=== PATIENT | male | born 1945 | race Caucasian/White ===

== ENCOUNTER 2017-03-18 13:19 | Emergency (ER) | payer OTHER, MEDICARE ==
[~2017-03-18] VITALS: Ht 180.3 cm; Wt 82.0 kg
[~2017-03-18 13:19] MED LIST: APIX5TAB3 PO; CARV-50 PO; FURO-150 PO; GABA-532 PO; MIRT30TA8 PO; OMEP40CA37 PO; POTA10TA19 PO; PRAV20TA4 PO; TOPI100T18 PO; TRAM50TA2 PO; VITA1TAB20 PO
[2017-03-18 15:29] VITALS: BP 125/89
== END 2017-03-18 15:34 | disposition home or self-care (01) ==
LOC: ER 13:19
DX: S01.411A Laceration without foreign body of right cheek and temporomandibular area, initial encounter (principal); S51.012A Laceration without foreign body of left elbow, initial encounter; S51.011A Laceration without foreign body of right elbow, initial encounter; I11.0 Hypertensive heart disease with heart failure; I50.9 Heart failure, unspecified; I48.91 Unspecified atrial fibrillation; G89.29 Other chronic pain; Z98.890 Other specified postprocedural states; Z79.899 Other long term (current) drug therapy; Z88.5 Allergy status to narcotic agent; W18.09XA Striking against other object with subsequent fall, initial encounter; Y93.89 Activity, other specified; Y92.89 Other specified places as the place of occurrence of the external cause; Y99.8 Other external cause status
CPT/HCPCS: 70450; 70486; 93005; 99284

== ENCOUNTER 2017-03-19 08:22 | Day surgery (SDC) | payer OTHER, MEDICARE ==
[~2017-03-19] VITALS: Ht 180.3 cm; Wt 81.6 kg
[2017-03-19] VITALS (7 sets, daily range): BP systolic 101–115; BP diastolic 55–67
[2017-03-19] MEDS ORDERED: albumin (human) 25% 100 ML IV solution IV PRN (08:50)
[2017-03-19] MEDS ORDERED: normal saline 1000ml 1,000 ML IV PRN (08:50)
== END 2017-03-19 10:23 | disposition home or self-care (01) ==
LOC: SSTAY O 08:22
PROVIDERS: ATTEND Radiology Vascular & Interventional Radiology
DX: R18.8 Other ascites (principal); K76.89 Other specified diseases of liver; I10 Essential (primary) hypertension; I25.10 Atherosclerotic heart disease of native coronary artery without angina pectoris; Z79.01 Long term (current) use of anticoagulants; Z88.6 Allergy status to analgesic agent; Z72.89 Other problems related to lifestyle; Z98.890 Other specified postprocedural states; Z79.899 Other long term (current) drug therapy
CPT/HCPCS: 49083; A6257; J7030; P9047

== ENCOUNTER 2017-04-01 08:14 | Inpatient (IN) | payer OTHER, MEDICARE ==
[~2017-04-01] VITALS: Ht 180.3 cm; Wt 84.9 kg
[2017-04-01] VITALS (17 sets, daily range): BP systolic 91–152; BP diastolic 49–97
[~2017-04-01 08:14] MED LIST changes: +LIDOcaine 1% 30ml vial IJ STA
[2017-04-01] MEDS ORDERED: albumin (human) 25% 100 ML IV solution IV PRN (08:40)
[2017-04-01] MEDS ORDERED: normal saline 1000ml 1,000 ML IV PRN (08:40)
[2017-04-01] MEDS ORDERED: oxyCODONE IR 5mg (immed. release) tablet PO ONE (09:05)
[2017-04-01] MEDS ORDERED: LIDOcaine 1% (10mg/ml) 2ml vial ONE (09:29)
[2017-04-01] MEDS ORDERED: MIDAZolam 5mg/ml 2ml vial ONE (10:49)
[2017-04-01] MEDS ORDERED: HYDR-569 PO (10:53)
[2017-04-01 11:15] LABS: BASOPHILS # (AUTO) 0.1 X10'3 (0-0.2); BASOPHILS % (AUTO) 0.9 % (0-1); EOSINOPHILS # (AUTO) 0.2 X10'3 (0-0.9); EOSINOPHILS % (AUTO) 3.2 % (0-6); HEMATOCRIT 41.2 % (42.0-52.0); HEMOGLOBIN 13.6 g/dl (14.0-17.9); LYMPHOCYTES # (AUTO) 2.2 X10'3 (1.1-4.8); LYMPHOCYTES % (AUTO) 31.3 % (21-51); MEAN CORPUSCULAR HGB CONC 33.1 % (33.0-36.5); MEAN CORPUSCULAR VOLUME 96.8 FL (78-98); MEAN PLATELET VOLUME 9.6 FL (7.4-10.4); MONOCYTES # (AUTO) 0.4 X10'3 (0-0.9); MONOCYTES % (AUTO) 6.1 % (2-12); NEUTROPHILS # (AUTO) 4.1 X10'3 (1.8-7.7); NEUTROPHILS % (AUTO) 58.5 % (42-75); PLATELET COUNT 197 X10'3 (140-440); RED BLOOD COUNT 4.25 X10'6 (4.70-6.10); RED CELL DISTRIBUTION WIDTH 15.5 % (11.5-14.5); WHITE BLOOD COUNT 6.9 X10'3 (4.5-11.0)
[2017-04-01] MEDS: normal saline 1000ml 1,000 ML IV SCH (11:23)
[2017-04-01 11:24] LABS: ALANINE AMINOTRANSFERASE 37 U/L (12-78); ALBUMIN 2.3 G/DL (3.4-5.0); ALBUMIN/GLOBULIN RATIO 0.5 (1.1-1.5); ALKALINE PHOSPHATASE 363 IU/L (46-116); ANION GAP 9 (8-16); ASPARTATE AMINO TRANSFERASE 47 U/L (10-37); BILIRUBIN,TOTAL 0.4 MG/DL (0.1-1.0); BLOOD UREA NITROGEN 33 MG/DL (7-18); BUN/CREATININE RATIO 18.3 (5.4-32.0); CALCIUM 8.7 MG/DL (8.5-10.1); CHLORIDE 109 MMOL/L (99-107); GLUCOSE 141 MG/DL (70-104); MAGNESIUM 2.2 MG/DL (1.5-2.4); PHOSPHORUS 4.3 MG/DL (2.3-4.5); SODIUM 143 MMOL/L (135-145); TOTAL CARBON DIOXIDE 24.6 MMOL/L (24-32); TOTAL PROTEIN 6.5 G/DL (6.4-8.2); eGFR 37 ML/MIN
[2017-04-01] MEDS ORDERED: magnesium hydroxide 30ml (MOM) UD suspension PO PRN (11:25)
[2017-04-01] MEDS ORDERED: ipratropium/albuterol 3ml nebule NEB PRN (11:25)
[2017-04-01] MEDS ORDERED: ondansetron/PF 4mg/2ml inj IV PRN (11:25)
[2017-04-01] MEDS ORDERED: magnesium 2GM in 50ml NS 50 ML IV PRN (11:25)
[2017-04-01] MEDS ORDERED: acetaminophen 325mg tablet PO PRN (11:25)
[2017-04-01] MEDS ORDERED: potassium Cl 20 mEq SR tablet PO PRN ×2 (11:25)
[2017-04-01] MEDS ORDERED: magnesium Cl slow-release 64mg tablet PO PRN (11:25)
[2017-04-01] MEDS ORDERED: magnesium 4gm in 100ml NS 100 ML IV PRN (11:25)
[2017-04-01] MEDS ORDERED: sodium phosphate inj. 15 MMOL in dextrose 5%-water 150 ML IV PRN (11:25)
[2017-04-01] MEDS ORDERED: Neutra Phos packet PO PRN (11:25)
[2017-04-01] MEDS ORDERED: sodium phosphate inj. 30 MMOL in dextrose 5%-water 250 ML IV PRN (11:25)
[2017-04-01 11:27] LABS: LACTIC SEPSIS 1.8 MMOL/L (0.4-2.0)
[2017-04-01] MEDS: insulin regular, human inj. 100 UNITS in normal saline 100ml IV soln 100 ML IV SCH ×2 (11:40)
[2017-04-01 12:46] LABS: ABG BASE EXCESS -4.7 mmol/L (-2.0-3.0); ABG HCO3 20.1 mmol/L (22.0-26.0); ABG OXYGEN SATURATION 98.2 % (95-98); ABG PCO2 (T) 32.5 mmHg (35.0-48.0); ABG PH (T) 7.397 (7.350-7.450); ABG PO2 (T) 110.2 mmHg (83-108); FCOHb 0.5 % (0.5-1.5); FMetHb 0.1 % (0.3-1.12); FO2Hb 97.6 % (94-100); PATIENT TEMPERATURE 34.1; PEEP 5 cm H2O; RESPIRATORY RATE 18 b/min; TIDAL VOLUME 450 mL; TOTAL HEMOGLOBIN 14.1 G/dl (14.0-18.0)
[2017-04-01 12:46] LABS: OXYGEN SATURATION (MIXED VEN) 57.2 % (60-80); PO2 MIXED VENOUS (TEMP COR) 26.5 mmHg (35-46)
[2017-04-01] MEDS: midazolam 100mg in NS 100ml 100 ML IV PRN (12:48)
[2017-04-01] MEDS: FENTANYL-0.9 % NACL/PF 100 ML IV PRN (12:49)
[2017-04-01] MEDS: insulin Lispro (HumaLOG) vial - multi-dose SQ SCH ×2 (13:00→18:00)
[2017-04-01 13:46] LABS: CKMB RELATIVE INDEX 1.9 RATIO (0-2.5); CREATINE KINASE 144 U/L (39-308); LIPASE 120 U/L (73-393); TROPONIN I 0.09 NG/ML (0.0-0.05)
[2017-04-01 14:05] LABS: INR 1.2 INR; PARTIAL THROMBOPLASTIN TIME 28 SECONDS (22-32); PLATELET COUNT 197 X10'3 (140-440); PROTHROMBIN TIME 11.9 SECONDS (9.0-12.0)
[2017-04-01 14:17] LABS: D-DIMER 7.29 MG/L FEU (0-0.50)
[2017-04-01 14:57] LABS: COLOR,URINE Yellow (Yellow); GLUCOSE, URINE Negative (Neg); KETONES,URINE Negative (Neg); LEUKOCYTE ESTERASE ,URINE Negative (Neg); NITRITES, URINE Negative (Neg); OCCULT BLOOD,URINE Small (Neg); PH,URINE 7.5 (4.8-8.0); PROTEIN,URINE 100 mg/dl (Neg)
[2017-04-01 15:03] LABS: CLARITY,URINE Slightly Cloudy (Clear); UA COLLECTION TYPE FOLEY CATH
[2017-04-01 15:36] LABS: BACTERIA,URINE FEW /HPF (Neg); RBC,URINE 0-2 /HPF (0-2); WBC,URINE 0-4 /HPF (0-4)
[2017-04-01 15:37] LABS: MUCUS STRANDS NONE SEEN /LPF (Neg); SQUAMOUS EPITHELIAL CELL,UR NONE SEEN /LPF (FEW)
[2017-04-01] MEDS: mineral oil/petrolatum ophthal oint OP SCH ×3 (15:39→20:00)
[2017-04-01 18:13] LABS: ANION GAP 8 (8-16); BLOOD UREA NITROGEN 34 MG/DL (7-18); BUN/CREATININE RATIO 22.7 (5.4-32.0); CALCIUM 8.2 MG/DL (8.5-10.1); CHLORIDE 110 MMOL/L (99-107); CKMB RELATIVE INDEX 3.5 RATIO (0-2.5); CREATINE KINASE 162 U/L (39-308); GLUCOSE 116 MG/DL (70-104); POTASSIUM 3.9 MMOL/L (3.5-5.1); SODIUM 144 MMOL/L (135-145); TOTAL CARBON DIOXIDE 26.5 MMOL/L (24-32); eGFR 46 ML/MIN
[2017-04-01 18:17] LABS: TROPONIN I 0.21 NG/ML (0.0-0.05)
[2017-04-01 19:55] LABS: OXYGEN SATURATION (MIXED VEN) 57.6 % (60-80)
[2017-04-01] MEDS: docusate sod 100mg capsule PO SCH (20:00)
[2017-04-01] MEDS: chlorhexidine gluconate 15ml Cup****oral rinse MM SCH (20:02)
[2017-04-01] MEDS: heparin, porcine 5000 units/ml vial SQ SCH (20:02)
[2017-04-01 20:26] LABS: ABG BASE EXCESS -5.8 mmol/L (-2.0-3.0); ABG HCO3 20.4 mmol/L (22.0-26.0); ABG OXYGEN SATURATION 98.7 % (95-98); ABG PCO2 (T) 34.8 mmHg (35.0-48.0); ABG PH (T) 7.364 (7.350-7.450); FCOHb 0.6 % (0.5-1.5); FMetHb 0.1 % (0.3-1.12); MINUTE VOLUME 12 L/min; PATIENT TEMPERATURE 32.4; PEEP 5 cm H2O; RESPIRATORY RATE 18 b/min; RESPIRATORY RATE (OBSERVED) 23 b/min; TIDAL VOLUME 450 mL; TOTAL HEMOGLOBIN 15.6 G/dl (14.0-18.0)
[2017-04-01 20:55] LABS: ALBUMIN 2.1 G/DL (3.4-5.0); ANION GAP 9 (8-16); BLOOD UREA NITROGEN 32 MG/DL (7-18); CALCIUM 8.2 MG/DL (8.5-10.1); CHLORIDE 109 MMOL/L (99-107); GLUCOSE 117 MG/DL (70-104); MAGNESIUM 2.1 MG/DL (1.5-2.4); POTASSIUM 4.2 MMOL/L (3.5-5.1); SODIUM 144 MMOL/L (135-145); TOTAL CARBON DIOXIDE 25.7 MMOL/L (24-32); eGFR 43 ML/MIN
[2017-04-01] MEDS ORDERED: CISatracurium **Bolus** 2 mg/ml inj IV PRN (21:00)
[2017-04-01] MEDS: DOPamine 400mg/D5W 250ml 250 ML IV PRN (21:03)
[2017-04-01] MEDS ORDERED: CISatracurium besylate inj. 200 MG in normal saline 250ml IV soln 180 ML IV PRN (21:15)
[2017-04-01] MEDS: NORepinephrine 8mg/ 250ml NS 250 ML IV SCH (21:50)
[2017-04-02] VITALS (24 sets, daily range): BP systolic 80–124; BP diastolic 50–86
[2017-04-02] MEDS: normal saline 1000ml 1,000 ML IV SCH ×2 (01:29→15:38)
[2017-04-02] MEDS: FENTANYL-0.9 % NACL/PF 100 ML IV PRN (02:08)
[2017-04-02 02:40] LABS: BASOPHILS % (AUTO) 0.5 % (0-1); EOSINOPHILS # (AUTO) 0.1 X10'3 (0-0.9); EOSINOPHILS % (AUTO) 1.4 % (0-6); HEMATOCRIT 50.4 % (42.0-52.0); HEMOGLOBIN 16.5 g/dl (14.0-17.9); LYMPHOCYTES # (AUTO) 0.7 X10'3 (1.1-4.8); LYMPHOCYTES % (AUTO) 9.3 % (21-51); MEAN CORPUSCULAR HEMOGLOBIN 31.3 PG (27.0-31.0); MEAN CORPUSCULAR HGB CONC 32.6 % (33.0-36.5); MEAN CORPUSCULAR VOLUME 96.1 FL (78-98); MEAN PLATELET VOLUME 9.1 FL (7.4-10.4); MONOCYTES # (AUTO) 0.4 X10'3 (0-0.9); MONOCYTES % (AUTO) 5.4 % (2-12); NEUTROPHILS # (AUTO) 6.4 X10'3 (1.8-7.7); NEUTROPHILS % (AUTO) 83.4 % (42-75); PLATELET COUNT 206 X10'3 (140-440); RED BLOOD COUNT 5.25 X10'6 (4.70-6.10); RED CELL DISTRIBUTION WIDTH 15.1 % (11.5-14.5); WHITE BLOOD COUNT 7.7 X10'3 (4.5-11.0)
[2017-04-02 02:52] LABS: INR 1.3 INR; PARTIAL THROMBOPLASTIN TIME 35 SECONDS (22-32); PROTHROMBIN TIME 13.4 SECONDS (9.0-12.0)
[2017-04-02] MEDS: mineral oil/petrolatum ophthal oint OP SCH ×6 (03:02→19:13)
[2017-04-02 03:10] LABS: ALANINE AMINOTRANSFERASE 39 U/L (12-78); ALBUMIN 2.1 G/DL (3.4-5.0); ALBUMIN/GLOBULIN RATIO 0.5 (1.1-1.5); ALKALINE PHOSPHATASE 368 IU/L (46-116); ANION GAP 9 (8-16); ASPARTATE AMINO TRANSFERASE 46 U/L (10-37); BILIRUBIN,TOTAL 0.6 MG/DL (0.1-1.0); BLOOD UREA NITROGEN 32 MG/DL (7-18); BUN/CREATININE RATIO 22.9 (5.4-32.0); CALCIUM 8.5 MG/DL (8.5-10.1); CHLORIDE 109 MMOL/L (99-107); CKMB RELATIVE INDEX 2.4 RATIO (0-2.5); CREATINE KINASE 518 U/L (39-308); GLUCOSE 118 MG/DL (70-104); PHOSPHORUS 4.1 MG/DL (2.3-4.5); POTASSIUM 3.8 MMOL/L (3.5-5.1); SODIUM 143 MMOL/L (135-145); TOTAL CARBON DIOXIDE 25.3 MMOL/L (24-32); TOTAL PROTEIN 6.5 G/DL (6.4-8.2); eGFR 50 ML/MIN
[2017-04-02 03:13] LABS: TROPONIN I 0.21 NG/ML (0.0-0.05)
[2017-04-02 03:50] LABS: ABG BASE EXCESS -2.6 mmol/L (-2.0-3.0); ABG HCO3 20.5 mmol/L (22.0-26.0); ABG OXYGEN SATURATION 97.8 % (95-98); ABG PCO2 (T) 25.9 mmHg (35.0-48.0); ABG PH (T) 7.497 (7.350-7.450); ABG PO2 (T) 72.7 mmHg (83-108); ALLEN'S TEST Positive; FCOHb 0.4 % (0.5-1.5); FMetHb 0.1 % (0.3-1.12); FO2Hb 97.3 % (94-100); MINUTE VOLUME 9 L/min; PATIENT TEMPERATURE 32.1; PEEP 5 cm H2O; RESPIRATORY RATE 18 b/min; RESPIRATORY RATE (OBSERVED) 18 b/min; TIDAL VOLUME 450 mL; TOTAL HEMOGLOBIN 17.7 G/dl (14.0-18.0)
[2017-04-02 03:55] LABS: OXYGEN SATURATION (MIXED VEN) 73.7 % (60-80); PO2 MIXED VENOUS (TEMP COR) 27.6 mmHg (35-46)
[2017-04-02] MEDS: docusate sod 100mg capsule PO SCH ×2 (08:00→19:13)
[2017-04-02] MEDS: pantoprazole 40 MG vial IV SCH (08:04)
[2017-04-02] MEDS: heparin, porcine 5000 units/ml vial SQ SCH ×2 (08:05→19:19)
[2017-04-02] MEDS: midazolam 100mg in NS 100ml 100 ML IV PRN (08:05)
[2017-04-02] MEDS: chlorhexidine gluconate 15ml Cup****oral rinse MM SCH ×2 (08:15→19:13)
[2017-04-02] MEDS: insulin Lispro (HumaLOG) vial - multi-dose SQ SCH ×3 (09:00→18:00)
[2017-04-02] MEDS: DOPamine 400mg/D5W 250ml 250 ML IV PRN (09:43)
[2017-04-02] MEDS: insulin regular, human inj. 100 UNITS in normal saline 100ml IV soln 100 ML IV SCH ×2 (11:40)
[2017-04-02] MEDS ORDERED: levoTHYROXINE sod inj. 100mcg/5 ml vial IV ONE (12:00)
[2017-04-02 13:14] LABS: ALANINE AMINOTRANSFERASE 37 U/L (12-78); ALBUMIN 1.7 G/DL (3.4-5.0); ALBUMIN/GLOBULIN RATIO 0.4 (1.1-1.5); ALKALINE PHOSPHATASE 315 IU/L (46-116); ANION GAP 6 (8-16); ASPARTATE AMINO TRANSFERASE 52 U/L (10-37); BILIRUBIN,TOTAL 0.6 MG/DL (0.1-1.0); BLOOD UREA NITROGEN 31 MG/DL (7-18); BUN/CREATININE RATIO 23.8 (5.4-32.0); CHLORIDE 112 MMOL/L (99-107); CKMB RELATIVE INDEX 2.9 RATIO (0-2.5); CREATINE KINASE 582 U/L (39-308); GLUCOSE 101 MG/DL (70-104); MAGNESIUM 1.9 MG/DL (1.5-2.4); POTASSIUM 3.5 MMOL/L (3.5-5.1); SODIUM 142 MMOL/L (135-145); TOTAL CARBON DIOXIDE 23.6 MMOL/L (24-32); TOTAL PROTEIN 5.8 G/DL (6.4-8.2); eGFR 54 ML/MIN
[2017-04-02 13:16] LABS: TROPONIN I 0.23 NG/ML (0.0-0.05)
[2017-04-02] MEDS: dextrose 50%-water 50ml dispensing syringe IV PRN (20:02)
[2017-04-02 21:34] LABS: CKMB RELATIVE INDEX 3.7 RATIO (0-2.5)
[2017-04-02 21:36] LABS: TROPONIN I 0.25 NG/ML (0.0-0.05)
[2017-04-02] MEDS: lactulose 20gm/30ml cup PO SCH (21:48)
[2017-04-03] VITALS (24 sets, daily range): BP systolic 66–114; BP diastolic 46–70
[2017-04-03] MEDS: FENTANYL-0.9 % NACL/PF 100 ML IV PRN (00:09)
[2017-04-03] MEDS: NORepinephrine 8mg/ 250ml NS 250 ML IV SCH ×2 (00:11→16:14)
[2017-04-03] MEDS: normal saline 1000ml 1,000 ML IV SCH ×2 (00:11→16:43)
[2017-04-03 02:22] LABS: BASOPHILS % (AUTO) 0.4 % (0-1); EOSINOPHILS # (AUTO) 0.1 X10'3 (0-0.9); EOSINOPHILS % (AUTO) 0.9 % (0-6); HEMATOCRIT 50.4 % (42.0-52.0); HEMOGLOBIN 16.6 g/dl (14.0-17.9); LYMPHOCYTES # (AUTO) 0.9 X10'3 (1.1-4.8); LYMPHOCYTES % (AUTO) 9.7 % (21-51); MEAN CORPUSCULAR HEMOGLOBIN 31.5 PG (27.0-31.0); MEAN CORPUSCULAR VOLUME 95.5 FL (78-98); MONOCYTES # (AUTO) 0.5 X10'3 (0-0.9); MONOCYTES % (AUTO) 5.4 % (2-12); NEUTROPHILS # (AUTO) 7.7 X10'3 (1.8-7.7); NEUTROPHILS % (AUTO) 83.6 % (42-75); PLATELET COUNT 197 X10'3 (140-440); RED BLOOD COUNT 5.28 X10'6 (4.70-6.10); RED CELL DISTRIBUTION WIDTH 15.4 % (11.5-14.5); WHITE BLOOD COUNT 9.2 X10'3 (4.5-11.0)
[2017-04-03 02:34] LABS: INR 1.3 INR; PARTIAL THROMBOPLASTIN TIME 36 SECONDS (22-32); PROTHROMBIN TIME 13.5 SECONDS (9.0-12.0)
[2017-04-03] MEDS: DOPamine 400mg/D5W 250ml 250 ML IV PRN ×2 (02:40→19:45)
[2017-04-03 02:54] LABS: ALBUMIN 1.7 G/DL (3.4-5.0); ANION GAP 9 (8-16); BILIRUBIN,TOTAL 0.6 MG/DL (0.1-1.0); BLOOD UREA NITROGEN 34 MG/DL (7-18); BUN/CREATININE RATIO 22.7 (5.4-32.0); CALCIUM 8.1 MG/DL (8.5-10.1); CHLORIDE 111 MMOL/L (99-107); CKMB RELATIVE INDEX 4.2 RATIO (0-2.5); CREATINE KINASE 261 U/L (39-308); GLUCOSE 90 MG/DL (70-104); PHOSPHORUS 4.6 MG/DL (2.3-4.5); POTASSIUM 3.7 MMOL/L (3.5-5.1); SODIUM 144 MMOL/L (135-145); TOTAL CARBON DIOXIDE 23.9 MMOL/L (24-32); TOTAL PROTEIN 5.7 G/DL (6.4-8.2); eGFR 46 ML/MIN
[2017-04-03 02:55] LABS: ALANINE AMINOTRANSFERASE 40 U/L (12-78); ALBUMIN/GLOBULIN RATIO 0.4 (1.1-1.5); ALKALINE PHOSPHATASE 296 IU/L (46-116); ASPARTATE AMINO TRANSFERASE 47 U/L (10-37)
[2017-04-03 02:57] LABS: TROPONIN I 0.24 NG/ML (0.0-0.05)
[2017-04-03] MEDS: mineral oil/petrolatum ophthal oint OP SCH ×7 (03:30→23:36)
[2017-04-03 04:06] LABS: ABG BASE EXCESS -4.6 mmol/L (-2.0-3.0); ABG HCO3 20.2 mmol/L (22.0-26.0); ABG OXYGEN SATURATION 97.9 % (95-98); ABG PCO2 (T) 35.6 mmHg (35.0-48.0); ABG PH (T) 7.367 (7.350-7.450); ABG PO2 (T) 101.8 mmHg (83-108); ALLEN'S TEST Positive; FCOHb 0.3 % (0.5-1.5); FMetHb 0.4 % (0.3-1.12); FO2Hb 97.2 % (94-100); MINUTE VOLUME 8 L/min; PEEP 5 cm H2O; RESPIRATORY RATE 16 b/min; RESPIRATORY RATE (OBSERVED) 16 b/min; TIDAL VOLUME 450 mL
[2017-04-03] MEDS: chlorhexidine gluconate 15ml Cup****oral rinse MM SCH (08:00)
[2017-04-03] MEDS: furosemide 20MG tablet PO SCH (08:00)
[2017-04-03] MEDS: rifaximin 550mg tablet PO SCH ×2 (08:00→19:49)
[2017-04-03] MEDS: potassium chloride 10mEq ER tablet PO SCH (08:00)
[2017-04-03] MEDS: carVEDilol 12.5mg tablet PO SCH ×2 (08:00→19:19)
[2017-04-03] MEDS: traMADol 50MG tablet PO SCH ×3 (08:00→19:17)
[2017-04-03] MEDS ORDERED: HYDROcodone/acetaminophen 5mg/325mg tablet PO PRN (08:00)
[2017-04-03] MEDS: apixaban 5mg tablet PO SCH ×2 (08:00→19:50)
[2017-04-03] MEDS: dextrose 50%-water 50ml dispensing syringe IV PRN (08:37)
[2017-04-03] MEDS: topiramate 100mg tablet PO SCH (08:47)
[2017-04-03] MEDS: pantoprazole 40 MG vial IV SCH (08:47)
[2017-04-03] MEDS: lactulose 20gm/30ml cup PO SCH ×3 (08:47→19:47)
[2017-04-03] MEDS: atorvastatin 10mg tablet PO SCH (08:48)
[2017-04-03] MEDS: levoTHYROXINE 25mcg tablet PO SCH (08:48)
[2017-04-03] MEDS: docusate sod 100mg capsule PO SCH ×2 (08:48→19:50)
[2017-04-03] MEDS: vitamin B comp w/Vit. C tab 1 TAB TABLET PO SCH (08:48)
[2017-04-03] MEDS: insulin Lispro (HumaLOG) vial - multi-dose SQ SCH (08:50)
[2017-04-03] MEDS ORDERED: midodrine 5mg tablet PO ONE (11:25)
[2017-04-03] MEDS: insulin regular, human inj. 100 UNITS in normal saline 100ml IV soln 100 ML IV SCH ×2 (11:40)
[2017-04-03] MEDS ORDERED: insulin regular, human vial - multi-dose SQ SCH (13:31)
[2017-04-03] MEDS: albumin (human) 25% 100ml IV 100 ML IV SCH ×2 (16:13→19:46)
[2017-04-03] MEDS: midodrine 5mg tablet PO SCH (19:49)
[2017-04-03] MEDS ORDERED: gabapentin 300mg capsule PO PRN (21:00)
[2017-04-03] MEDS: mirtazapine 15mg tablet PO SCH (21:00)
[2017-04-04] VITALS (24 sets, daily range): BP systolic 81–115; BP diastolic 48–64
[2017-04-04] MEDS: normal saline 1000ml 1,000 ML IV SCH (00:10)
[2017-04-04] MEDS: NORepinephrine 8mg/ 250ml NS 250 ML IV SCH ×2 (01:35→09:58)
[2017-04-04 02:00] LABS: BASOPHILS # (AUTO) 0.1 X10'3 (0-0.2); BASOPHILS % (AUTO) 0.9 % (0-1); EOSINOPHILS # (AUTO) 0.1 X10'3 (0-0.9); EOSINOPHILS % (AUTO) 0.8 % (0-6); HEMATOCRIT 39.8 % (42.0-52.0); HEMOGLOBIN 13.2 g/dl (14.0-17.9); LYMPHOCYTES # (AUTO) 1.3 X10'3 (1.1-4.8); LYMPHOCYTES % (AUTO) 14.5 % (21-51); MEAN CORPUSCULAR HEMOGLOBIN 31.3 PG (27.0-31.0); MEAN CORPUSCULAR HGB CONC 33.1 % (33.0-36.5); MEAN CORPUSCULAR VOLUME 94.6 FL (78-98); MEAN PLATELET VOLUME 9.1 FL (7.4-10.4); MONOCYTES # (AUTO) 0.9 X10'3 (0-0.9); MONOCYTES % (AUTO) 9.9 % (2-12); NEUTROPHILS # (AUTO) 6.5 X10'3 (1.8-7.7); NEUTROPHILS % (AUTO) 73.9 % (42-75); PLATELET COUNT 214 X10'3 (140-440); RED BLOOD COUNT 4.21 X10'6 (4.70-6.10); RED CELL DISTRIBUTION WIDTH 14.6 % (11.5-14.5); WHITE BLOOD COUNT 8.9 X10'3 (4.5-11.0)
[2017-04-04] MEDS: lactulose 20gm/30ml cup PO SCH ×4 (02:01→20:50)
[2017-04-04] MEDS: albumin (human) 25% 100ml IV 100 ML IV SCH ×4 (02:02→20:59)
[2017-04-04 02:10] LABS: INR 1.4 INR; PARTIAL THROMBOPLASTIN TIME 43 SECONDS (22-32)
[2017-04-04 02:15] LABS: ALANINE AMINOTRANSFERASE 28 U/L (12-78); ALBUMIN 2.2 G/DL (3.4-5.0); ALBUMIN/GLOBULIN RATIO 0.7 (1.1-1.5); ALKALINE PHOSPHATASE 258 IU/L (46-116); ANION GAP 11 (8-16); ASPARTATE AMINO TRANSFERASE 31 U/L (10-37); BILIRUBIN,TOTAL 0.7 MG/DL (0.1-1.0); BLOOD UREA NITROGEN 35 MG/DL (7-18); BUN/CREATININE RATIO 21.9 (5.4-32.0); CALCIUM 8.1 MG/DL (8.5-10.1); CHLORIDE 114 MMOL/L (99-107); GLUCOSE 92 MG/DL (70-104); MAGNESIUM 1.9 MG/DL (1.5-2.4); PHOSPHORUS 4.3 MG/DL (2.3-4.5); POTASSIUM 3.7 MMOL/L (3.5-5.1); PREALBUMIN 11.7 MG/DL (19-36); SODIUM 147 MMOL/L (135-145); TOTAL CARBON DIOXIDE 21.8 MMOL/L (24-32); TOTAL PROTEIN 5.5 G/DL (6.4-8.2); eGFR 43 ML/MIN
[2017-04-04] MEDS: mineral oil/petrolatum ophthal oint OP SCH ×2 (04:00→08:52)
[2017-04-04 04:26] LABS: ABG BASE EXCESS -6.2 mmol/L (-2.0-3.0); ABG HCO3 19.3 mmol/L (22.0-26.0); ABG OXYGEN SATURATION 85.5 % (95-98); ABG PCO2 (T) 38.7 mmHg (35.0-48.0); ABG PH (T) 7.317 (7.350-7.450); ABG PO2 (T) 52.9 mmHg (83-108); ALLEN'S TEST Positive; FCOHb 1.2 % (0.5-1.5); FMetHb 0.2 % (0.3-1.12); FO2Hb 84.3 % (94-100); MINUTE VOLUME 8 L/min; PATIENT TEMPERATURE 37.4; PEEP 5 cm H2O; RESPIRATORY RATE 16 b/min; RESPIRATORY RATE (OBSERVED) 16 b/min; TIDAL VOLUME 450 mL; TOTAL HEMOGLOBIN 14.1 G/dl (14.0-18.0)
[2017-04-04] MEDS: furosemide 20MG tablet PO SCH (08:00)
[2017-04-04] MEDS: carVEDilol 12.5mg tablet PO SCH (08:00)
[2017-04-04] MEDS: potassium chloride 10mEq ER tablet PO SCH (08:00)
[2017-04-04] MEDS: dextrose 50%-water 50ml dispensing syringe IV PRN (08:45)
[2017-04-04] MEDS: pantoprazole 40 MG vial IV SCH (08:45)
[2017-04-04] MEDS: topiramate 100mg tablet PO SCH (08:46)
[2017-04-04] MEDS: docusate sod 100mg capsule PO SCH ×2 (08:47→20:00)
[2017-04-04] MEDS: rifaximin 550mg tablet PO SCH ×2 (08:47→20:52)
[2017-04-04] MEDS: LACTOBACILLUS RHAMNOSUS GG 15 billion unit sprinkle caps PO SCH (08:48)
[2017-04-04] MEDS: midodrine 5mg tablet PO SCH ×3 (08:50→20:54)
[2017-04-04] MEDS: atorvastatin 10mg tablet PO SCH (08:51)
[2017-04-04] MEDS: apixaban 5mg tablet PO SCH ×2 (08:51→20:51)
[2017-04-04] MEDS: levoTHYROXINE 25mcg tablet PO SCH (08:51)
[2017-04-04] MEDS: traMADol 50MG tablet PO SCH (08:51)
[2017-04-04] MEDS: vitamin B comp w/Vit. C tab 1 TAB TABLET PO SCH (08:52)
[2017-04-04] MEDS ORDERED: gabapentin 300mg capsule PO PRN (09:55)
[2017-04-04] MEDS: mineral oil/petrolatum ophthal oint EACHEYE SCH ×2 (14:27→20:59)
[2017-04-04] MEDS: metoclopramide 5 mg/ml inj IV SCH ×2 (14:28→20:00)
[2017-04-04] MEDS: midazolam 100mg in NS 100ml 100 ML IV PRN (17:40)
[2017-04-04] MEDS: FENTANYL-0.9 % NACL/PF 100 ML IV PRN (17:41)
[2017-04-04] MEDS: mirtazapine 15mg tablet PO SCH (20:54)
[2017-04-05] VITALS (24 sets, daily range): BP systolic 84–142; BP diastolic 40–83
[2017-04-05] MEDS: lactulose 20gm/30ml cup PO SCH ×4 (02:45→20:00)
[2017-04-05] MEDS: albumin (human) 25% 100ml IV 100 ML IV SCH ×4 (02:48→22:01)
[2017-04-05] MEDS: mineral oil/petrolatum ophthal oint EACHEYE SCH ×4 (02:53→20:00)
[2017-04-05] MEDS: metoclopramide 5 mg/ml inj IV SCH ×4 (02:57→21:58)
[2017-04-05 03:04] LABS: BASOPHILS % (AUTO) 0.3 % (0-1); EOSINOPHILS # (AUTO) 0.1 X10'3 (0-0.9); EOSINOPHILS % (AUTO) 0.9 % (0-6); HEMATOCRIT 39.9 % (42.0-52.0); HEMOGLOBIN 13.4 g/dl (14.0-17.9); LYMPHOCYTES # (AUTO) 0.9 X10'3 (1.1-4.8); LYMPHOCYTES % (AUTO) 7.9 % (21-51); MEAN CORPUSCULAR HEMOGLOBIN 32.2 PG (27.0-31.0); MEAN CORPUSCULAR HGB CONC 33.4 % (33.0-36.5); MEAN CORPUSCULAR VOLUME 96.4 FL (78-98); MONOCYTES # (AUTO) 0.8 X10'3 (0-0.9); MONOCYTES % (AUTO) 7.2 % (2-12); NEUTROPHILS # (AUTO) 9.5 X10'3 (1.8-7.7); NEUTROPHILS % (AUTO) 83.7 % (42-75); PLATELET COUNT 197 X10'3 (140-440); RED BLOOD COUNT 4.14 X10'6 (4.70-6.10); RED CELL DISTRIBUTION WIDTH 15.8 % (11.5-14.5); WHITE BLOOD COUNT 11.4 X10'3 (4.5-11.0)
[2017-04-05 03:13] LABS: INR 1.3 INR; PARTIAL THROMBOPLASTIN TIME 49 SECONDS (22-32); PROTHROMBIN TIME 13.2 SECONDS (9.0-12.0)
[2017-04-05 03:17] LABS: ALANINE AMINOTRANSFERASE 21 U/L (12-78); ALBUMIN 2.7 G/DL (3.4-5.0); ALBUMIN/GLOBULIN RATIO 0.8 (1.1-1.5); ALKALINE PHOSPHATASE 267 IU/L (46-116); ANION GAP 10 (8-16); ASPARTATE AMINO TRANSFERASE 25 U/L (10-37); BILIRUBIN,TOTAL 1.1 MG/DL (0.1-1.0); BLOOD UREA NITROGEN 35 MG/DL (7-18); BUN/CREATININE RATIO 20.6 (5.4-32.0); CALCIUM 8.4 MG/DL (8.5-10.1); CHLORIDE 114 MMOL/L (99-107); GLUCOSE 105 MG/DL (70-104); MAGNESIUM 1.9 MG/DL (1.5-2.4); PHOSPHORUS 3.4 MG/DL (2.3-4.5); POTASSIUM 3.5 MMOL/L (3.5-5.1); SODIUM 147 MMOL/L (135-145); TOTAL CARBON DIOXIDE 22.9 MMOL/L (24-32); TOTAL PROTEIN 5.9 G/DL (6.4-8.2); eGFR 40 ML/MIN
[2017-04-05 04:40] LABS: ABG BASE EXCESS -5.8 mmol/L (-2.0-3.0); ABG HCO3 18.5 mmol/L (22.0-26.0); ABG OXYGEN SATURATION 95.3 % (95-98); ABG PCO2 (T) 33.3 mmHg (35.0-48.0); ABG PH (T) 7.363 (7.350-7.450); ABG PO2 (T) 79.1 mmHg (83-108); ALLEN'S TEST Positive; FMetHb 0.1 % (0.3-1.12); FO2Hb 94.3 % (94-100); MINUTE VOLUME 8 L/min; PATIENT TEMPERATURE 37.2; PEEP 5 cm H2O; RESPIRATORY RATE 16 b/min; RESPIRATORY RATE (OBSERVED) 18 b/min; TIDAL VOLUME 450 mL; TOTAL HEMOGLOBIN 14.1 G/dl (14.0-18.0)
[2017-04-05] MEDS: docusate sod 100mg capsule PO SCH (08:00)
[2017-04-05] MEDS: apixaban 5mg tablet PO SCH ×2 (08:00→20:00)
[2017-04-05] MEDS: NORepinephrine 8mg/ 250ml NS 250 ML IV SCH ×2 (09:06→14:15)
[2017-04-05] MEDS: pantoprazole 40 MG vial IV SCH (09:17)
[2017-04-05] MEDS: atorvastatin 10mg tablet PO SCH (09:17)
[2017-04-05] MEDS: vitamin B comp w/Vit. C tab 1 TAB TABLET PO SCH (09:17)
[2017-04-05] MEDS: topiramate 100mg tablet PO SCH (09:18)
[2017-04-05] MEDS: rifaximin 550mg tablet PO SCH ×2 (09:18→20:00)
[2017-04-05] MEDS: midodrine 5mg tablet PO SCH ×3 (09:18→21:00)
[2017-04-05] MEDS: LACTOBACILLUS RHAMNOSUS GG 15 billion unit sprinkle caps PO SCH (09:18)
[2017-04-05] MEDS: furosemide 20MG tablet PO SCH (09:18)
[2017-04-05] MEDS: levoTHYROXINE 25mcg tablet PO SCH (09:29)
[2017-04-05] MEDS ORDERED: bisacodyl 10mg suppository rectal RC PRN (10:20)
[2017-04-05] MEDS ORDERED: potassium Cl oral solution 20 MEQ/15 ML PO PRN ×2 (10:57→10:58)
[2017-04-05] MEDS ORDERED: potassium Cl oral solution 20 MEQ/15 ML PO SCH (10:58)
[2017-04-05] MEDS ORDERED: methylnaltrexone br 12mg/0.6ml inj***SubQ only SQ SCH (10:59)
[2017-04-05] MEDS ORDERED: naloxone 0.4 mg/ml inj IV PRN (11:05)
[2017-04-05] MEDS ORDERED: racepinephrine 11.25mg/0.5ml nebule IH PRN (11:05)
[2017-04-05 17:15] LABS: ABG BASE EXCESS -11.6 mmol/L (-2.0-3.0); ABG HCO3 16.9 mmol/L (22.0-26.0); ABG OXYGEN SATURATION 90.2 % (95-98); ABG PCO2 (T) 44.6 mmHg (35.0-48.0); ABG PH (T) 7.188 (7.350-7.450); ABG PO2 (T) 62.1 mmHg (83-108); ALLEN'S TEST Positive; FCOHb 1.1 % (0.5-1.5); FLOW 6 L/min; FMetHb 0.2 % (0.3-1.12); PATIENT TEMPERATURE 35.4; TOTAL HEMOGLOBIN 15.2 G/dl (14.0-18.0)
[2017-04-05] MEDS: docusate sodium 100mg/10ml UD cup PO SCH (20:00)
[2017-04-05 20:41] LABS: ABG BASE EXCESS -7.5 mmol/L (-2.0-3.0); ABG HCO3 17.9 mmol/L (22.0-26.0); ABG OXYGEN SATURATION 85.9 % (95-98); ABG PCO2 (T) 35.7 mmHg (35.0-48.0); ABG PH (T) 7.316 (7.350-7.450); ABG PO2 (T) 51.1 mmHg (83-108); ALLEN'S TEST Positive; FCOHb 0.9 % (0.5-1.5); FMetHb 0.2 % (0.3-1.12); MINUTE VOLUME 29 L/min; PATIENT TEMPERATURE 36.7; RESPIRATORY RATE 14 b/min; TOTAL HEMOGLOBIN 15.8 G/dl (14.0-18.0)
[2017-04-05] MEDS: mirtazapine 15mg tablet PO SCH (21:00)
[2017-04-05] MEDS: piperacillin/tazo 3.375gm/50ml 50 ML IV SCH (22:15)
[2017-04-05] MEDS: dextrose 50%-water 50ml dispensing syringe IV PRN (22:17)
[2017-04-06] VITALS (16 sets, daily range): BP systolic 48–92; BP diastolic 36–67
[2017-04-06] MEDS: albumin (human) 25% 100ml IV 100 ML IV SCH ×2 (02:00→08:47)
[2017-04-06] MEDS: metoclopramide 5 mg/ml inj IV SCH ×3 (02:00→14:00)
[2017-04-06] MEDS: lactulose 20gm/30ml cup PO SCH ×2 (02:00→08:00)
[2017-04-06] MEDS: mineral oil/petrolatum ophthal oint EACHEYE SCH ×3 (02:00→14:00)
[2017-04-06] MEDS ORDERED: DOBUTamine-DoBUTrex 500mg/D5W 250 ML IV PRN (02:30)
[2017-04-06] MEDS ORDERED: DOBUTamine-DoBUTrex 500mg/D5W 250 ML IV ONE (02:32)
[2017-04-06 03:06] LABS: ABG BASE EXCESS -9.4 mmol/L (-2.0-3.0); ABG HCO3 13.9 mmol/L (22.0-26.0); ABG OXYGEN SATURATION 88.5 % (95-98); ABG PCO2 (T) 25.2 mmHg (35.0-48.0); ABG PH (T) 7.362 (7.350-7.450); ABG PO2 (T) 56.1 mmHg (83-108); ALLEN'S TEST Positive; FCOHb 0.5 % (0.5-1.5); FMetHb 0.1 % (0.3-1.12); PATIENT TEMPERATURE 37.6; RESPIRATORY RATE 14 b/min; RESPIRATORY RATE (OBSERVED) 28 b/min; TOTAL HEMOGLOBIN 14.4 G/dl (14.0-18.0)
[2017-04-06] MEDS ORDERED: vasoPRESSIN 20 units/ml inj. ONE (03:06)
[2017-04-06 03:20] LABS: INR 1.5 INR; PARTIAL THROMBOPLASTIN TIME 48 SECONDS (22-32); PROTHROMBIN TIME 15.5 SECONDS (9.0-12.0)
[2017-04-06] MEDS ORDERED: vasopressin inj. 60 UNIT in normal saline 100ml IV soln 97 ML IV SCH (03:20)
[2017-04-06] MEDS: piperacillin/tazo 3.375gm/50ml 50 ML IV SCH ×2 (03:23→08:48)
[2017-04-06] MEDS: NORepinephrine 8mg/ 250ml NS 250 ML IV SCH ×2 (03:23→10:58)
[2017-04-06] MEDS ORDERED: sodium bicarbonate (8.4%) 1 mEq/ml syringe IV ONE (03:25)
[2017-04-06] MEDS ORDERED: sodium bicarbonate (8.4%) 1 mEq/ml syringe ONE (03:27)
[2017-04-06 03:44] LABS: BASOPHILS % (AUTO) 0.1 % (0-1); EOSINOPHILS % (AUTO) 0.7 % (0-6); HEMATOCRIT 38.1 % (42.0-52.0); HEMOGLOBIN 12.9 g/dl (14.0-17.9); LYMPHOCYTES # (AUTO) 0.2 X10'3 (1.1-4.8); LYMPHOCYTES % (AUTO) 8.1 % (21-51); MEAN CORPUSCULAR HGB CONC 33.8 % (33.0-36.5); MEAN CORPUSCULAR VOLUME 94.6 FL (78-98); MEAN PLATELET VOLUME 8.8 FL (7.4-10.4); MONOCYTES # (AUTO) 0.1 X10'3 (0-0.9); MONOCYTES % (AUTO) 3.4 % (2-12); NEUTROPHILS # (AUTO) 1.9 X10'3 (1.8-7.7); NEUTROPHILS % (AUTO) 87.7 % (42-75); RED BLOOD COUNT 4.03 X10'6 (4.70-6.10); RED CELL DISTRIBUTION WIDTH 15.6 % (11.5-14.5); WHITE BLOOD COUNT 2.2 X10'3 (4.5-11.0)
[2017-04-06 03:57] LABS: ALANINE AMINOTRANSFERASE 20 U/L (12-78); ALBUMIN/GLOBULIN RATIO 1.3 (1.1-1.5); ALKALINE PHOSPHATASE 163 IU/L (46-116); ANION GAP 12 (8-16); ASPARTATE AMINO TRANSFERASE 27 U/L (10-37); BILIRUBIN,TOTAL 2.1 MG/DL (0.1-1.0); BLOOD UREA NITROGEN 44 MG/DL (7-18); CALCIUM 8.5 MG/DL (8.5-10.1); CHLORIDE 116 MMOL/L (99-107); GLUCOSE 95 MG/DL (70-104); PHOSPHORUS 2.5 MG/DL (2.3-4.5); POTASSIUM 3.4 MMOL/L (3.5-5.1); SODIUM 150 MMOL/L (135-145); TOTAL CARBON DIOXIDE 21.7 MMOL/L (24-32); TOTAL PROTEIN 5.4 G/DL (6.4-8.2); eGFR 31 ML/MIN
[2017-04-06 04:09] LABS: TOTAL CELLS COUNTED 25
[2017-04-06 04:11] LABS: ANISOCYTOSIS 1+; BURR CELLS 2+; PLATELET ESTIMATE NORMAL
[2017-04-06 04:12] LABS: PLATELET COUNT 173 X10'3 (140-440)
[2017-04-06] MEDS: levoTHYROXINE 25mcg tablet PO SCH (07:00)
[2017-04-06] MEDS: LACTOBACILLUS RHAMNOSUS GG 15 billion unit sprinkle caps PO SCH (07:30)
[2017-04-06] MEDS: midodrine 5mg tablet PO SCH (08:00)
[2017-04-06] MEDS: furosemide 20MG tablet PO SCH (08:00)
[2017-04-06] MEDS: apixaban 5mg tablet PO SCH (08:00)
[2017-04-06] MEDS: rifaximin 550mg tablet PO SCH (08:00)
[2017-04-06] MEDS: vitamin B comp w/Vit. C tab 1 TAB TABLET PO SCH (08:00)
[2017-04-06] MEDS: docusate sodium 100mg/10ml UD cup PO SCH (08:00)
[2017-04-06] MEDS: pantoprazole 40 MG vial IV SCH (08:00)
[2017-04-06] MEDS: atorvastatin 10mg tablet PO SCH (08:00)
[2017-04-06] MEDS: topiramate 100mg tablet PO SCH (08:00)
[2017-04-06] MEDS ORDERED: LORazepam 2 mg/ml vial IV PRN (12:45)
[2017-04-06] MEDS ORDERED: morphine 2 MG/ML inj. syringe IV PRN (12:45)
== END 2017-04-06 16:54 | disposition expired | DRG 207 ==
LOC: SSTAY O 08:14 → ICU 2S 10:18
PROVIDERS: ADMIT Internal Medicine Critical Care Medicine; ATTEND Internal Medicine Critical Care Medicine
PROC: 5A1955Z Respiratory Ventilation, Greater than 96 Consecutive Hours (ICD-10-PCS; principal; 2017-04-01)
PROC: 0BH18EZ Insertion of Endotracheal Airway into Trachea, Via Natural or Artificial Opening Endoscopic (ICD-10-PCS; 2017-04-01)
PROC: 02HV33Z Insertion of Infusion Device into Superior Vena Cava, Percutaneous Approach (ICD-10-PCS; 2017-04-01)
PROC: 0W9G3ZZ Drainage of Peritoneal Cavity, Percutaneous Approach (ICD-10-PCS; 2017-04-01)
PROC: 5A12012 Performance of Cardiac Output, Single, Manual (ICD-10-PCS; 2017-04-02)
PROC: 5A09357 Assistance with Respiratory Ventilation, Less than 24 Consecutive Hours, Continuous Positive Airway Pressure (ICD-10-PCS; 2017-04-05)
PROC: 02HV33Z Insertion of Infusion Device into Superior Vena Cava, Percutaneous Approach (ICD-10-PCS; 2017-04-05)
DX: J96.00 Acute respiratory failure, unspecified whether with hypoxia or hypercapnia (principal); I46.9 Cardiac arrest, cause unspecified; N17.9 Acute kidney failure, unspecified; I42.9 Cardiomyopathy, unspecified; K76.6 Portal hypertension; I50.9 Heart failure, unspecified; I11.0 Hypertensive heart disease with heart failure; K70.31 Alcoholic cirrhosis of liver with ascites; F10.20 Alcohol dependence, uncomplicated; H57.04 Mydriasis; I25.10 Atherosclerotic heart disease of native coronary artery without angina pectoris; I48.91 Unspecified atrial fibrillation; Z66 Do not resuscitate; Z51.5 Encounter for palliative care; Z79.899 Other long term (current) drug therapy; Z88.5 Allergy status to narcotic agent; Z79.01 Long term (current) use of anticoagulants
CPT/HCPCS: 36415; 36569; 36600; 49083; 70450; 71045; 74018; 76937; 80048; 80053; 81001; 82140; 82330; 82550; 82553; 82803; 82810; 82948; 83605; 83690; 83735; 83880; 84100; 84134; 84145; 84443; 84484; 85018; 85025; 85379; 85384; 85610; 85730; 86885; 86900; 86901; 87070; 92616; 92950; 93306; 94002; 94003; 94660; 94760; A6257; A6258; A6449; C9113; J1250; J1265; J1644; J1815; J2060; J2250; J2270; J2543; J2765; J3490; J7030; P9047